=== PATIENT | female | born 1970 | race African-American/Black ===

== ENCOUNTER → 2019-10-15 14:50 | Outpatient (CLI) | payer BC, SELFPAY ==
--- NOTE | ~2019-10-15 | MM_ITS ---
EXAMINATION: MM screening contra [facility] BI w marilou HISTORY: Screening mammogram TECHNIQUE: Craniocaudal and mediolateral oblique 3-D tomosynthesis images were obtained and synthetic 2-D images were generated. CAD analysis was submitted and interpreted. COMPARISON: 08/21/2018, 09/19/2017, 09/17/2016 BREAST PARENCHYMAL COMPOSITION: The breasts are extremely dense, which lowers the sensitivity of mamm ography. FINDINGS: There is no evidence of suspicious mass, calcification, or architectural distortion to sugg est malignancy in either breast. There has been no suspicious interval change. IMPRESSION: 1. No mammographic evidence of malignancy. 2. Recommend routine screening mammography in one year. BI-RADS Category 1: Negative Reviewed, dictated and finalized at location A.
== END ==
PROVIDERS: Visit Provider Obstetrics & Gynecology
DX: Z12.31 Encounter for screening mammogram for malignant neoplasm of breast (principal)
CPT/HCPCS: 77063; 77067

== ENCOUNTER → 2020-12-22 16:07 | Outpatient (CLI) | payer BC, SELFPAY ==
--- NOTE | ~2020-12-22 | MM_ITS ---
EXAMINATION: MM screening jenny BI w marilou HISTORY: Screening TECHNIQUE: Craniocaudal and mediolateral oblique 3-D tomosynthesis images were obtained and synthetic 2-D images were generated. CAD analysis was submitted and interpreted. COMPARISON: Comparison to multiple prior studies sequentially, with oldest reviewed study dated 08/20. BREAST PARENCHYMAL COMPOSITION: The breasts are extremely dense, which lowers the sensitivity of mamm ography. FINDINGS: There is no evidence of suspicious mass, calcification, or architectural distortion to sugg est malignancy in either breast. There has been no suspicious interval change. IMPRESSION: 1. No mammographic evidence of malignancy. 2. Recommend routine screening mammography in one year. BI-RADS Category 1: Negative Reviewed, dictated and finalized at location A.
== END ==
PROVIDERS: Visit Provider Obstetrics & Gynecology
DX: Z12.31 Encounter for screening mammogram for malignant neoplasm of breast (principal)
CPT/HCPCS: 77063; 77067

== ENCOUNTER 2021-12-28 00:34 | Day surgery (SDC) | payer BC, SELFPAY ==
[2021-12-11 15:16] VITALS: BMI 27.6
[2021-12-28 09:02] VITALS: BP 120/91; PULSE 73; RESP 22; TEMP 36.3; O2SAT 100
[2021-12-28] MEDS: LACTATED RINGERS 1,000 ML 150 ML IV CONT (09:18)
--- NOTE | 2021-12-28 09:58 | P.PNAN_ITS ---
Anes - Initial Pre Proc Eval Procedure: Operation Date: 12/28/21 10:30 Proposed Procedures p Screening Colonoscopy - Franco Hadley MD Date/Time: 12/28/21 09:58 Surgeon: Franco Hadley MD Pre Op Diagnosis: neoplasm screening Patient Data Age: 51 Gender: F Height: 1.63 m Weight: 74.2 kg Last Vital Signs Temp 97.3 F L 12/28/21 09:02 Pulse 73 12/28/21 09:02 Resp 22 H 12/28/21 09:02 BP 120/91 H 12/28/21 09:02 Pulse Ox 100 12/28/21 09:02 O2 Del Method Room Air 12/28/21 09:02 Allergies Allergy/AdvReac Type Severity Reaction Status Date / Time No Known Allergies Allergy Mild Verified 12/28/21 09:00 Home Medications Medication Instructions Recorded Confirmed Type cholecalciferol (vitamin D3) 25 25 mcg PO DAILY 11/21/21 12/28/21 History mcg (1,000 unit) capsule levonorgestrel 20 mcg/24 hours (7 1 device intrauterine ONCE 11/21/21 12/28/21 History yrs) 52 mg intrauterine device (Mirena) multivitamin with minerals 1 tablet PO DAILY 11/21/21 12/28/21 History (Hair,Skin and Nails tablet) turmeric 400 mg capsule 400 mg PO DAILY 11/21/21 12/28/21 History vitamin B complex (B 1 tablet PO DAILY 11/21/21 12/28/21 History Complex-Vitamin B12 tablet) Patient hx anesthesia problems: none Family hx anesthesia problems: none Results Review: All pre-operative results and documents have been reviewed as part of the pre- operative evaluation. ON LICENSE OF [facility] Surgical History Surgical History [place] teeth removed Family History Family History Mother Diabetes mellitus Heart problem Father Heart disease Social History Social History Smoking status: Never smoker Alcohol intake: current Drinks per week: 3 Alcohol use details: some weeks 0 drinks Substance use: never Substance use type: does not use Living arrangements: with family Spiritual care concerns: No Agree to blood products: Yes Anes - Eval Final PreProcedure Day of Procedure 12/28/21 09:58 Results Review: All pre-operative results and documents have been reviewed as part of the pre- operative evaluation. Informed Consent: The patient's anesthetic plan and its attendant risks and benefits were discussed with the patient/family/POA. Questions were solicited and answers pr ovided to the satisfaction of the patient/family/POA.
--- NOTE | 2021-12-28 10:06 | PM.HPGS ---
History of Present Illness History of Present Illness Consent: Risks, benefits, and alternatives have been discussed and questions answered. Patient agrees to proceed with procedure. Chief complaint: neoplasm screening Narrative: Gifty Vance is a 51 year old female here for first screening colonoscopy Review of Systems Constitutional: Constitutional: Denies headache(s) and Denies weakness Eyes: Eyes: Denies blurry vision ENT: Reports Normal hearing present, Denies headache(s) and Denies neck pain Cardiovascular: Cardiovascular: Denies chest pain and Denies dyspnea Respiratory: Respiratory: Denies dyspnea Gastrointestinal: Gastrointestinal: Reports no additional gastrointestinal complaints Genitourinary: Genitourinary: Denies dysuria Musculoskeletal: Musculoskeletal: Denies neck pain Integumentary/Breasts: Skin/Breast: Denies dry skin Neurologic: Reports Normal hearing present, Denies headache(s) and Denies weakness Psychiatric: Psychiatric: Denies anxiety Endocrine: Endocrine: Denies change in body appearance Hematologic/Lymphatic: Hematologic/Lymphatic: Denies easy bleeding Allergic/Immunologic: Allergic/Immunologic: Denies urticaria [facility] Past Medical History Medical History (Updated 12/28/21 @ 10:06 by Franco Hadley MD) Colon cancer screening Surgical History Surgical History [place] teeth removed Family History Family History Mother Diabetes mellitus Heart problem Father Heart disease Social History Social History Smoking status: Never smoker Alcohol intake: current Drinks per week: 3 Alcohol use details: some weeks 0 drinks Substance use: never Substance use type: does not use Living arrangements: with family Spiritual care concerns: No Agree to blood products: Yes Meds Home Medications and Allergies Home Medications Medication Instructions Recorded Confirmed Type cholecalciferol (vitamin D3) 25 25 mcg PO DAILY 11/21/21 12/28/21 History mcg (1,000 unit) capsule levonorgestrel 20 mcg/24 hours (7 1 device intrauterine ONCE 11/21/21 12/28/21 History yrs) 52 mg intrauterine device (Mirena) multivitamin with minerals 1 tablet PO DAILY 11/21/21 12/28/21 History (Hair,Skin and Nails tablet) turmeric 400 mg capsule 400 mg PO DAILY 11/21/21 12/28/21 History vitamin B complex (B 1 tablet PO DAILY 11/21/21 12/28/21 History Complex-Vitamin B12 tablet) Allergies Allergy/AdvReac Type Severity Reaction Status Date / Time No Known Allergies Allergy Mild Verified 12/28/21 09:00 Vital Signs Vital Signs - 24 hr 12/28/21 09:02 Temperature 97.3 F L Pulse Rate 73 Respiratory Rate 22 H Blood Pressure 120/91 H Pulse Oximetry 100 Oxygen Delivery Room Air Exam Const: General: comfortable and no acute distress HENMT: General nose exam: Normal nares present Eyes: General: appearance normal, both eyes and all related structures Neck: Neck: no JVD Resp: Auscultation: clear to auscultation bilaterally Cardio: Rate: regular rate Rhythm: regular rhythm GI: Inspection: non-distended GI Palp: Yes Soft to palpation Skin: General skin exam: normal color Neuro: General: gait normal Speech: normal speech Extrem: General: normal to inspection Psych: Mental Status: mental status grossly normal Assessment and Plan Assessment and plan (1) Colon cancer screening: Code(s): Z12.11 - Encounter for screening for malignant neoplasm of colon Status: Acute Assessment and Plan: colonoscopy
[2021-12-28 10:31] VITALS: BP 109/53; PULSE 68; RESP 21; O2SAT 98
[2021-12-28 10:41] VITALS: BP 127/77; PULSE 65; RESP 19; O2SAT 100
[2021-12-28 10:51] VITALS: BP 121/64; PULSE 65; RESP 17; O2SAT 96
== END 2021-12-28 10:58 | disposition home or self-care (01) ==
PROVIDERS: Visit Provider Internal Medicine Gastroenterology
PROC: 0DJD8ZZ Inspection of Lower Intestinal Tract, Via Natural or Artificial Opening Endoscopic (ICD-10-PCS; CPT 45378; principal; 2021-12-28 10:30)
DX: Z12.11 Encounter for screening for malignant neoplasm of colon (principal)
CPT/HCPCS: 45378; J2704; J7120

== ENCOUNTER → 2022-02-04 14:58 | Outpatient (CLI) | payer BC, SELFPAY ==
--- NOTE | ~2022-02-04 | MM_ITS ---
EXAMINATION: MM screening jenny BI w marilou HISTORY: Screening mammogram TECHNIQUE: Craniocaudal and mediolateral oblique 3-D tomosynthesis images were obtained and synthetic 2-D images were generated. CAD analysis was submitted and interpreted. COMPARISON: 12/18/2020, 10/15/2019 bilateral screening mammogram examinations 08/17/2018 bilateral diagnostic mammography and limited left breast ultrasound BREAST PARENCHYMAL COMPOSITION: The breasts are heterogeneously dense, which may obscure small masses . FINDINGS: Stable benign circumscribed left axillary tail lymph nodes There is no evidence of suspicio us mass, calcification, or architectural distortion to suggest malignancy in either breast. There has been no suspicious interval change. IMPRESSION: 1. No mammographic evidence of malignancy. 2. Recommend routine screening mammography in one year. BI-RADS Category 2: Benign finding(s). 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
== END ==
PROVIDERS: Visit Provider Obstetrics & Gynecology
DX: Z12.31 Encounter for screening mammogram for malignant neoplasm of breast (principal)
CPT/HCPCS: 77063; 77067

== ENCOUNTER 2023-06-11 14:41 | Outpatient (CLI) | payer BC, SELFPAY ==
--- NOTE | ~2023-06-11 | MM_ITS ---
EXAMINATION: MM screening jenny BI w marilou HISTORY: Screening mammogram TECHNIQUE: Craniocaudal and mediolateral oblique 3-D tomosynthesis images were obtained and synthetic 2-D images were generated. Bilateral rotated lateral CC views. CAD analysis was submitted and interp reted. COMPARISON: 02/04/2022, 12/18/2020 bilateral screening mammogram examinations BREAST PARENCHYMAL COMPOSITION: The breasts are heterogeneously dense, which may obscure small masses . FINDINGS: There is no evidence of suspicious mass, calcification, or architectural distortion to sugg est malignancy in either breast. There has been no suspicious interval change. IMPRESSION: 1. No mammographic evidence of malignancy. 2. Recommend routine screening mammography in one year. BI-RADS Category 1: Negative Reviewed, dictated and finalized at location A.
== END 2023-06-11 14:42 ==
PROVIDERS: PCP Obstetrics & Gynecology; Visit Provider Obstetrics & Gynecology
DX: Z12.31 Encounter for screening mammogram for malignant neoplasm of breast (principal)
CPT/HCPCS: 77063; 77067

== ENCOUNTER 2024-04-30 12:51 | Outpatient (CLI) | payer BC, SELFPAY ==
--- OUTSIDE RECORDS SUMMARY | 2024-04-30 12:54 | XMS_ITS | Patient Health Summary ---
Author Organization [facility] Address [address] [place] [address] Care Team Providers Care Tire Mechanic Name Role Phone Thomas Velez MD Primary Care Provider [phone] Note from [facility],non-owned Affiliates and Associated Physician Practices is amultiple site organization consisting of ambulatory clinics and hospital sitesin [place], [place], [place] and [place]. This disclosure is being madepursuant to the Care Everywhere program and may not contain all information available regarding this patient. Last updated 17.[facility] Allergies No known active allergies Medications Be aware that medications may not be up to date on this document. Always verify current medications with the patient. No known medications Active Problems Problem Noted Date Diagnosed Date SOB (shortness of breath) 02/04/2023 Social History Tobacco Use Types Packs/Day Years Used Date Smoking Tobacco: Never Smokeless Tobacco: Never Tobacco Cessation:Counseling Given: Not Answered Sex and Gender Information Value Date Recorded Sex Assigned at Not on file Gender Identity Not on file Sexual Orientation Not on file Last Filed Vital Signs Vital Sign Reading Time Taken Comments Blood Pressure 130/84 03/05/2023 2:23 PM MANAGER DIVISION Pulse 84 02/04/2023 2:13 PM MANAGER DIVISION Temperature 36.7 ??C (98 ??F) 02/04/2023 2:13 PM MANAGER DIVISION Respiratory Rate 14 02/03/2023 8:16 AM MANAGER DIVISION Oxygen Saturation 99% 02/03/2023 8:16 AM MANAGER DIVISION Inhaled Oxygen Concentration - - Weight 79.4 kg (175 lb) 03/05/2023 2:23 PM MANAGER DIVISION Height 162.6 cm (5' 4 ) 03/05/2023 2:23 PM MANAGER DIVISION Body Mass Index 30.04 03/05/2023 2:23 PM MANAGER DIVISION Procedures * ECHO COMPLETE(Performed 03/05/2023) Performed for SOB (shortness of breath) * EKG 12-LEAD(Performed 02/04/2023) Performed for SOB (shortness of breath) * CULTURE URINE(Performed 02/03/2023) Performed for Frequency of urination * HCG URINE QUALITATIVE - POCT (IP) URGENT CARE(Performed 02/03/2023) Performed for Frequency of urination * URINALYSIS - POCT (IP) URGENT CARE(Performed 02/03/2023) Performed for Frequency of urination Results * ECHO COMPLETE (03/05/2023 2:24 PM MANAGER DIVISION) BSA 1.2143855 [id number] m2 SSM CV FUJI PACS LV biplane EF 64 54 - 74 % SSM CV FUJI PACS LV A2C EF 69 52 - 76 % SSM CV FUJ I PACS LV A4C EF 61 46 - 78 % SSM CV FUJ I PACS LV stroke vol BP 54.2 mL SSM CV FUJI PACS LV stroke vol BP index 28.2 mL/m2 SSM CV FUJI PACS LVOT stroke vol 69.95 mL SSM CV FUJI PACS LVOT stroke vol index 36.45 mL/m2 SSM CV FUJI PACS LV stroke vol 2D teich 61.025 ml SSM CV FUJI PACS LV Stroke Index 2D Teich 31.80 mL/m2 SSM CV FUJI PACS LV stroke vol index A4C MOD 47.132 ml/m2 SSM CV FUJI PACS LVIDd 4.70 3.8 - 5.2 cm SSM CV FUJI PACS LVIDs 3.22 2.2 - 3.5 cm SSM CV FUJI PACS IVSd 2D 1.002 0.6 - 0.9 cm SSM CV FUJI PACS LVPWd 1.02 0.6 - 0.9 cm SSM CV FUJI PACS Fractional Shortening 2D 32 28 - 44 % SSM CV FUJI PACS LV ESV BP 30.758 14 - 42 mL SSM CV FUJI PACS LV ESV index BP 16.0 8 - 24 mL/m2 SSM CV FUJI PACS LV ESV A2C 30.326 10 - 54 mL SSM CV FUJI PACS LV ESV index A2C 15.80 6 - 30 mL/m2 SSM CV FUJI PACS LV EDV BP 84.94 46 - 106 mL SSM CV FUJI PACS LV ESV A4C 26.468 12 - 60 mL SSM CV FUJI PACS LV ESV index A4C 13.79 7 - 35 mL/m2 SSM CV FUJI PACS LV EDV index BP 44.3 29 - 61 mL/m2 SSM CV FUJI PACS LV EDV A2C 84.75 41 - 133 mL SSM CV FUJI PACS LV EDV index A2C 44.16 26 - 74 mL/m2 SSM CV FUJI PACS LV EDV A4C 77.458 mL SSM CV FU JI PACS LV ESV 2D 41.424 14 - 42 mL SSM CV FUJI PACS LV EDV index A4C 40.36 30 - 82 mL/m2 SSM CV FUJI PACS LV ESV index 2D 21.59 8 - 24 mL/m2 SSM CV FUJI PACS LV EDV 2D 102.449 46 - 106 mL SSM CV FUJI PACS LV EDV index 2D 53.39 29 - 61 mL/m2 SSM CV FUJI PACS LVOT diam 2.0 cm SSM CV FUJ I PACS LVOT area 3.04 cm2 SSM CV FUJ I PACS LV RWT 0.433 SSM CV FUJ I PACS LV Clarke A2C 8.438 cm SSM CV F UJI PACS LV Clarke A4C 7.557 cm SSM CV F UJI PACS IVS/LVPW 0.984 SSM CV FUJ I PACS LV mass 2D 166.799 66 - 150 g SSM CV FUJI PACS LV mass index 2D 86.92 44 - 88 g/m2 SSM CV FUJI PACS MV E pk ruben 109.702 cm/s SSM CV F UJI PACS MV avg E/e' ratio 12.58 SS M CV FUJI PACS MV A pk ruben 90.583 cm/s SSM CV F UJI PACS MV E A ratio 1.21 SSM CV FUJI PACS MV E' lateral ruben 12.074 cm/s SS M CV FUJI PACS MV DT 226 ms SSM CV FUJ I PACS MV E' septal ruben 6.823 cm/s SSM CV FUJI PACS MV E/e' septal 16.079 SSM C V FUJI PACS MV E/e' lateral 9.086 SSM CV FUJI PACS LA vol BP 73.717 mL SSM CV FUJ I PACS TR pk ruben 237.6 cm/s SSM CV FUJ I PACS LVOT pk ruben 1.07 m/s SSM CV F UJI PACS LVOT mn ruben 0.69 m/s SSM CV F UJI PACS LVOT mn grad 2.2 mmHg SSM CV FUJI PACS LVOT Cardiac Output 4.376 l/min SSM CV FUJI PACS LVOT Cardiac Index 2.28 l/min/m2 SSM CV FUJI PACS LA vol index 38.4 16 - 34 mL/m2 SSM CV FUJI PACS LA size 4.233 2.7 - 3.8 cm SSM CV FUJI PACS LA vol BP A-L 78.012 mL SSM CV FUJI PACS RV-clarke basal diam 2.2 2.5 - 4.1 cm SSM CV FUJI PACS RV-clarke longitudinal diam 6.8 5.9 - 8.3 cm SSM CV FUJI PACS TV S' ruben 12.941 cm/s SSM CV FUJ I PACS TAPSE 2.486 1.7 cm SSM CV FUJ I PACS RA area 16.691 cm2 SSM CV FUJ I PACS AORTIC VALVE CUSP SEPARATION 2.06 cm SSM CV FUJI PACS AV mn grad 4 mmHg SSM CV FU JI PACS AV pk grad 8 mmHg SSM CV FU JI PACS AV mn ruben 0.90 m/s SSM CV FUJ I PACS AV pk ruben 1.42 m/s SSM CV FUJ I PACS AV VTI 30.747 cm SSM CV FUJ I PACS LVOT pk grad 4.579 mmHg SSM CV FUJI PACS LVOT VTI 22.989 cm SSM CV FUJ I PACS AV area cont VTI 2.3 cm2 SSM CV FUJI PACS AV area pk ruben 2.3 cm2 SSM C V FUJI PACS AV Doppler ruben index pk ruben 0.752 SSM CV FUJI PACS Dimensionless Index 0.748 SSM CV FUJI PACS MV PHT 65 ms SSM CV FUJ I PACS MV area PHT 3.36 cm2 SSM CV F UJI PACS MV decel slope 485.727 cm/s2 SSM C V FUJI PACS TR pk grad 23 mmHg SSM CV FU JI PACS Sinus of Valsalva 3.44 cm SS M CV FUJI PACS Ascending aorta 3.02 cm SSM CV FUJI PACS Sinus of valsalva index 1.79 cm/m2 SSM CV FUJI PACS IVC size 2.9 cm SSM CV FUJ I PACS LA ESV A4C MOD Index 37 ml/m2 SSM CV FUJI PACS LA ESV A2C MOD Index 34 ml/m2 SSM CV FUJI PACS [id number] 6.027 cm SSM CV FUJ I PACS [id number] 7.331 cm SSM CV FUJ I PACS Prox Asc Ao Diameter Index 1.574 cm SSM CV FUJI PACS Ao Root Diam Index (2D) 1.792 cm SSM CV FUJI PACS LVIDs index 1.68 1.3 - 2.1 cm/m2 SSM CV FUJI PACS LV LVIDd index 2.45 2.3 - 3.1 cm/m2 SSM CV FUJI PACS RVSP 38.0 mmHg SSM CV FUJ I PACS RAP 15.0 mmHg SSM CV FUJ I PACS Anatomical Region Laterality Modality Ultrasound Narrative 03/05/2023 6:21 PM MANAGER DIVISION ?Normal left ventricular systolic function. EF by 2D Arellano biplane is 64%. Diastolic function is indeterminate. ?Right ventricle size is normal. Normal systolic function. ?The pulmonary artery systolic pressure is normal. ?Mild mitral regurgitation. Left Ventricle Left ventricle size is normal. Normal wall thickness. Findings consistent with concentric remodeling. Normal systolic function. EF by 2D Arellano biplane is 64%. Normal wall motion. Diastolic function is indeterminate. Right Ventricle Right ventricle size is normal. Normal systolic function. Left Atrium Left atrium size is normal. Left atrium volume index is 38.4 mL/m2. Right Atrium Right atrium size is normal. IVC/SVC IVC diameter is greater than 21 mm and decreases less than 50% during inspiration; therefore the estimated right atrial pressure is elevated (~15 mmHg). Mitral Valve Valve structure is normal. No restricted motion. Mild regurgitation. No stenosis. Tricuspid Valve Valve structure is normal. No restricted motion. Mild regurgitation. The pulmonary artery systolic pressure is normal (under 35 mmHg). No stenosis. Aortic Valve Valve structure is trileaflet. No restricted motion. No regurgitation. No stenosis. Pulmonic Valve Valve structure is normal. No restricted motion. Mild regurgitation. No stenosis. Ascending Aorta Normal sized sinus of Valsalva (aortic root) and ascending aorta. Pericardium No pericardial effusion. Study Details Study quality was good. A complete 2D, color Doppler, spectral Doppler and M- mode echocardiogram was performed. The apical, parasternal, subcostal and suprasternal views were obtained. Procedure Note Geronimo Gardner MD - 03/05/2023 ? ? Normal left ventricular systolic function. EF by 2D Arellano biplane is64%. Diastolic function is indeterminate. ? ? Right ventricle size is normal. Normal systolic function. ? ? The pulmonary artery systolic pressure is normal. ? ? Mild mitral regurgitation. Geronimo Campo MD ECHO CUP ID * EKG 12-LEAD (02/04/2023 2:16 PM MANAGER DIVISION) Ventricular Rate 78 BPM [facility] Atrial Rate 78 BPM [facility] P-R Interval 144 ms [facility] QRS Duration ms 78 ms [facility] Q-T Interval ms 400 ms [facility] QTC Calculation (Bezet) 456 ms [facility] Calculated P [place] 51 degrees [facility] Calculated R [place] 25 degrees [facility] Calculated T [place] 30 degrees [facility] Interpretation EKG NORMAL SINUS RHYTHM NORMAL ECG Confirmed by MD Bharti, Remigio ([id number]) on 02/05/2023 7:37:32 AM [facility] MUSE 02/04/2023 2:16 PM MANAGER DIVISION 02/05/2023 7:37 AM MANAGER DIVISION Geronimo Campo MD ECG [facility] MUSE * (ABNORMAL) CULTURE URINE (02/03/2023 10:42 AM MANAGER DIVISION) Culture Urine >100,000 CFU/mL Escherichia coli(A) SERGIO 02/05/2023 5:42 AM MANAGER DIVISION [facility]CRO[facility]OLOG[facility] Urine URINE SPECIMEN OBTAINED BY CLEAN CATCH PROCEDURE / Unknown Collection / Unknown 02/03/2023 10:42 AM MANAGER DIVISION 02/03/2023 10:42 AM MANAGER DIVISION Narrative Organism Antibiotic Method Susceptibility Escherichia coli Amikacin SERGIO <=2 ug/mL: Susceptible Escherichia coli Ampicillin SERGIO <=2 ug/mL: Susceptible Escherichia coli Ampicillin-sulbactam SERGIO <=2 ug/mL: Susceptible Escherichia coli Cefazolin SERGIO <=4 ug/mL: See Comment* Escherichia coli Cefazolin-Urine (uncomplicated infections ONLY) SERGIO <=4 ug/mL: Susceptible Escherichia coli Cefepime SERGIO <=1 ug/mL: Susceptible Escherichia coli Ceftriaxone SERGIO <=1 ug/mL: Susceptible Escherichia coli Ciprofloxacin SERGIO <=0.25 ug/mL: Susceptible Escherichia coli Extended-Spectrum Beta-Lactamase SERGIO NEG ug/mL: Neg Escherichia coli Gentamicin SERGIO <=1 ug/mL: Susceptible Escherichia coli Meropenem SERGIO <=0.25 ug/mL: Susceptible Escherichia coli Nitrofurantoin SERGIO <=16 ug/mL: Susceptible Escherichia coli Piperacillin-tazobactam SERGIO <=4 ug/mL: Susceptible Escherichia coli Tobramycin SERGIO <=1 ug/mL: Susceptible Escherichia coli Trimethoprim-sulfame thoxaz ole SERGIO <=20 ug/mL: Susceptible Comment: *Cefazolin SERGIO of </=4 cannot distinguish between susceptible or intermediate for systemic breakpoints. If further defined interpretation is needed, call Microbiology and a disk diffusion test will be performed. Urine breakpoints for cefazolin should only be used when treating uncomplicated UTIs including men and women without urologic abnormality, kidney stones, stents, nephrostomy tubes, signs/symptoms of systemic illness, or pelvic/perineal pain in men. Cefazolin results can be used to predict susceptibility to oral cephalosporins - cephalexin, cefprozil, cefaclor, cefuroxime, cefdinir, and cefpodoxime. For complicated UTIs, use alternative cefazolin susceptibility result above. Aisha Gomez HAT CLEANER-AIRCRA[employer] SHIPPING CHECKER LAB - MICROBIOLO GY ORDERABLES Performing Organization Address City/[facility]/ZIP Co de Phone Number [facility] [address] [place] [address], [facility] [phone] * HCG URINE QUALITATIVE - POCT (IP) URGENT CARE (02/03/2023 8:22 AM MANAGER DIVISION) HCG Qual Urine Negative Negative [facility] QC Verified Yes Yes [facility] Urine URINE / Unknown 02/03/2023 8 :22 AM MANAGER DIVISION Aisha Gomez HAT CLEANER[employer] SHIPPING CHECKER LAB - POINT OF C ARE ORDERABLES Performing Organization Address [facility] Co de Phone Number [facility] [address] [place] [address] * (ABNORMAL) URINALYSIS - POCT (IP) URGENT CARE (02/03/2023 8:22 AM MANAGER DIVISION) Glucose UA neg Negative [facility] Bilirubin UA neg Negative [facility] Ketone UA neg Negative [facility] Specific [place] UA POCT 1.005 1.000 - 1.030 [facility] Blood UA 2 Negative [facility] pH UA 7.0 5.0 - 8.0 pH units [facility] Protein UA 1+ Negative [facility] Urobilinogen UA 0.2 0.2 - 1.0 EU/dL [facility] Nitrite UA neg Negative [facility] Leukocyte UA 2+ Negative [facility] QC Verified Yes Yes [facility] Urine URINE / Unknown 02/03/2023 8 :22 AM MANAGER DIVISION Aisah Gomez HAT CLE[employer]ER[employer] SHIPPING CHECKER LAB - POINT OF C ARE ORDERABLES Performing Organization Address [facility] Co de Phone Number [facility] [address] [place] [address] Care Teams Tire Mechanic Relationship Specialty Start Date End Date Thomas Velez MD [address] [id number] PCP - General Internal Medicine 01/24/23
--- OUTSIDE RECORDS SUMMARY | 2024-04-30 12:54 | XMS_ITS | Clinical Summary ---
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 Gender Identity Not on file Sexual Orientation Not on file Plan of Treatment Health Maintenance Due Date Last Done Comments Hepatitis C Virus (HCV) Screening 1972 TdaP Immunization 1972 Pap Smear 1993 Cervical Cancer Screening (CCS) 2002 HPV/Cotest 2002 Colonoscopy 2017 Colorectal Cancer Screening 2017 Cologuard 2022 Immunochemical Fecal Occult Blood 2022 Mammogram 2022 Pneumococcal Immunization (5 0+ years) (1 of 1 - PCV) 2022 Zoster Immunization (1 of 2) 2022 Influenza Immunization (#1) 2023 SARS-COV-2 Immunization ( - 2023-25 season) 2023 Respiratory Syncytial Virus (RSV) Immunization (Adult) (1 - 1-dose 75+ series) 2047 Hepatitis B Immunization Completed 019, 09/27/2018, 08/27/2018 Meningococcal Immunization (ACWY) Aged Out No longer eligible b ased on patient's age to complete this topic Pneumococcal Immunization Combined Aged Out No longer eligible b ased on patient's age to complete this topic Rotavirus Immunization Aged Out No lo nger eligible based on patient's age to complete this topic Insurance [employer] on file
--- OUTSIDE RECORDS SUMMARY | 2024-04-30 12:56 | XMS_ITS | Continuity of Care Document ---
Author Organization [facility] Address [address] [place] [address] Phone Care Team Providers Care Ring Conductor Name Role Phone House Ingris BRITTON Unavailable Unavailable Allergies, Adverse Reactions, Alerts Substance Reaction Status Criticality No Known Allergies Active No Inform ation Medications Medication Instructions Dosage Effective Dates (start - stop) Status Comments Vitamin D2 1,250 mcg (50,000 unit) capsule - Active vitamin B complex tablet - Active meloxicam 15 mg tablet take 1 tablet by oral route every day 15 MG - No Longer Active Procedures Procedure Date X-ray Exam Hip Unilat With Pelvis When P erformed Min 4 Views Office/outpatient visit,[facility] 2023 Advance Directives Directive Yes / No Effective Date File Name No Information Encounters Encounter Description Practice Location Reason(s) For Visit Diagnoses Date Provider Providers Copied on Encounter Office/outpat ient visit,[facility], [facility], [address], [place], [place], [id number], [place] tel:[phone] [facility] right hip pain (chief complaint) Pain in right hipTrochanteric bursitis, right hip 4 [place] [facility] . [address], [address], [place], [place], [id number] , [place]. tel: [phone] Family History Family Member Type Diagnosis Age At Onset Mother Problem (finding) Heart Disease Mother Problem (finding) Diabetes Father Problem (finding) Heart Disease Immunizations Vaccine Date Status Comments influenza, injectable, quadrivalent, (3 years or older) administered Source: Source Unspecified Payers Payer name Insurance type Covered green party ID Daphney philippe[facility] [id number] 99 Social History Type Description Quantity Date Captured Comments Alcohol Use Details Unknown Caffeine Use Details Unknown Tobacco Use Status Current non-smoker Smoking Status Never smoker Non-Smoking Tobacco Use Details : No Details Available : No Details Available Sex Female Vital Signs Date / Time: Height Weight BMI Pulse Rate Blood Pressure Temperature Respiratory Rate Body Surface Area Head Circumference Head Circ. Percentile Wt./Russell. Percentile BMI percentile Pulse Ox Inhaled Ox 9:26 AM 64.00 in 77.111 kg (170.00 lbs) 29.1 8 kg/m eter (2) 1.87 meter(2) Chief Complaint And Reason For Visit From encounter dated '09/19/2023 09:30'. right hip pain (chief complaint). Description: Gifty Vance is a 53 year old female. She presents with pain on the right side. She states that the symptoms have been acute non-traumatic and began 3 months ago. The symptoms occur constantly. The problem is unchanged. Currently the patient states that the symptoms are moderate-severe. The patient is experiencing pain in the following location: lateral region on the right side. She rates her current pain as 7/10. The pain does not radiate. The symptoms are aggravated by sitting and sleeping on the affected side. Gifty states that the symptoms are relieved by no specific activity. She denies having any associated symptoms. Pertinent negatives include fever, tingling in the arms and weight loss. She has had no previous treatment. Patient has not had any pertinent therapy for this condition. Patient has had no prior surgeries. There were no previous episodes. She experienced no previous injury. Reason For Referral Reason For Referral No Information Plan Of Treatment Date Type Action Status Referral Ordered: X-ray Exam Hip Unilat With Pelvis When Performed Min 4 Views RT hip ordered History Of Present Illness Encounter Date Complaint History Of Prese nt Illness right hip pain Gifty Vance is a 53 year old female. She presents with pain on the right side. She states that the symptoms have been acute non-traumatic and began 3 months ago. The symptoms occur constantly. The problem is unchanged. Currently the patient states that the symptoms are moderate-severe. The patient is experiencing pain in the following location: lateral region on the right side. She rates her current pain as 7/10. The pain does not radiate. The symptoms are aggravated by sitting and sleeping on the affected side. Gifty states that the symptoms are relieved by no specific activity. She denies having any associated symptoms. Pertinent negatives include fever, tingling in the arms and weight loss. She has had no previous treatment. Patient has not had any pertinent therapy for this condition. Patient has had no prior surgeries. There were no previous episodes. She experienced no previous injury. Functional Status Date Functional Assessmen t No Information Instructions Date Instruction Additional Infor mation The patient would li ke to proceed with conservative care and continue icing, NSAIDs/Tylenol, activity modifications, and physical therapy guided rehab and/or home strengthening exercises as appropriate. We discussed we could proceed with an injection or more vs. more likely obtaining an MRI if not improved to rule out an Abductor tear if indicated. The patient will follow up on an as needed basis and was instructed to call with any issues or concerns. Questions answered, verbalized understanding. Related to Trochanteric bursitis, right hip Assessments Type Assessment Date assessment Pain in right hip assessment Trochanteric bursitis, right hip impression We discussed in bee pretty the symptoms, causes, treatment options, and expected outcomes of the patient's trochanteric bursitis. We discussed the role of initial non-operative management strategies, including icing, the judicious use of anti-inflammatory medications with the approval of the patient's primary care physician, activity modifications, and physical therapy/home exercises. We discussed the role of cortisone injections as well as biologic injections such as PRP, and the possible need for surgical intervention should non-surgical treatments fail. After a detailed discussion the patient and I have elected to proceed with the following plan: Patient Care Teams Name Effective Dates (start - stop) Status Members No Information
--- OUTSIDE RECORDS SUMMARY | 2024-04-30 12:56 | XMS_ITS | Clinical Summary ---
Author Organization [email or web address] Address [address] [place] [address] Care Team Providers Care Post Production Assistant Name Role Phone Thomas Velez MD Primary Care Provider [phone] Source Comments [email or web address],non-owned Affiliates and Associated Physician Practices is amultiple site organization consisting of ambulatory clinics and hospital sitesin [place], [place], [place] and [place]. This disclosure is being madepursuant to the Care Everywhere program and may not contain all information available regarding this patient. Last updated 12/19/17.[email or web address] Allergies No known active allergies Medications Be [...] Comments Blood Pressure 130/84 03/05/2023 2:23 PM ART OBJECTS REPAIRER Pulse 84 02/04/2023 2:13 PM ART OBJECTS REPAIRER Temperature 36.7 ??C (98 ??F) 02/04/2023 2:13 PM ART OBJECTS REPAIRER Respiratory Rate 14 02/03/2023 8:16 AM ART OBJECTS REPAIRER Oxygen Saturation 99% 02/03/2023 8:16 AM ART OBJECTS REPAIRER Inhaled Oxygen Concentration - - Weight 79.4 kg (175 lb) 03/05/2023 2:23 PM ART OBJECTS REPAIRER Height 162.6 cm (5' 4 ) 03/05/2023 2:23 PM ART OBJECTS REPAIRER Body Mass Index 30.04 03/05/2023 2:23 PM ART OBJECTS REPAIRER Plan of Treatment Health Maintenance Due Date Last Done Comments COLOGUARD (AGES 45-75) - COLON CA SCREENING 1972 COLON MONITORING 1972 COLONOSCOPY - COLON CA SCREENING 1972 CT COLONOGRAPHY - COLON CA SCREENING 1972 Colorectal Cancer Screening 1972 FIT - COLON CA SCREENING 1972 FLEX SIG - COLON CA SCREENING 1972 LIPID TESTING 1972 MAMMOGRAM 1972 PAP SMEAR 1972 HIV SCREENING 1987 HEPATITIS C SCREENING 03/25/1990 DTAP/TDAP/TD VACCINES (1 - Tdap) 1991 HEPATITIS B VACCINE (1 of 3 - 19+ 3-dose series) 1991 PNEUMOCOCCAL VACCINE 50+ (1 of 1 - PCV) 2022 ZOSTER VACCINE (1 of 2) 2022 COVID-19 VACCINE (5 - season) 2023 01/28/2021, 07/15/2020, 06/24/2020, Additional history exists INFLUENZA VACCINE (#1) 2023 DEPRESSION SCREENING 03/31/2024 HIB VACCINE Aged Out No longer eligi ble based on patient's age to complete this topic HPV VACCINE Aged Out No longer eligi ble based on patient's age to complete this topic MENINGOCOCCAL (Group B) VACCINE Aged Out No longer eligible based on patient's age to complete this topic MENINGOCOCCAL VACCINE Aged Out No roberto rocael eligible based on patient's age to complete this topic PNEUMOCOCCAL VACCINE Aged Out No long er eligible based on patient's age to complete this topic Care Teams Post Production Assistant Relationship Specialty Start Date End Date Thomas Velez MD [address] [place] [id number] PCP - General Internal Medicine 01/24/23
--- OUTSIDE RECORDS SUMMARY | 2024-04-30 12:56 | XMS_ITS | Referral Summary ---
Author Organization [facility] Address [address] [place] [address] Care Team Providers Care Career Placement Services Counselor Name Role Phone Thomas Velez MD Primary Care Provider [phone] Source Comments [facility],non-owned Affiliates and Associated Physician Practices is amultiple site organization consisting of ambulatory clinics and hospital sitesin [place], [place], [place] and [place]. This disclosure is being madepursuant to the Care Everywhere program and may not contain all information available regarding this patient. Last updated 17.[facility] Allergies No known active allergies Medications Be [...] Comments Blood Pressure 130/84 03/05/2023 2:23 PM PIANO ASSEMBLER Pulse 84 02/04/2023 2:13 PM PIANO ASSEMBLER Temperature 36.7 ??C (98 ??F) 02/04/2023 2:13 PM PIANO ASSEMBLER Respiratory Rate 14 02/03/2023 8:16 AM PIANO ASSEMBLER Oxygen Saturation 99% 02/03/2023 8:16 AM PIANO ASSEMBLER Inhaled Oxygen Concentration - - Weight 79.4 kg (175 lb) 03/05/2023 2:23 PM PIANO ASSEMBLER Height 162.6 cm (5' 4 ) 03/05/2023 2:23 PM PIANO ASSEMBLER Body Mass Index 30.04 03/05/2023 2:23 PM PIANO ASSEMBLER Plan of Treatment Not on file Care Teams Career Placement Services Counselor Relationship Specialty Start Date End Date Thomas Velez MD [address] [address] PCP - General Internal Medicine 01/24/23
--- OUTSIDE RECORDS SUMMARY | 2024-04-30 12:56 | XMS_ITS | Clinical Summary ---
Author Organization [facility] [address] [facility] Address [address] [place] [address] Care Team Providers Care Coppersmith Helper Name Role Phone Christiana Tovar MD Primary Care Provider [phone] Medications azelastine (ASTELIN) 137 mcg/actuation nasal spray Administer 2 Sprays in each nostril 2 times daily. 30 mL Active Active Problems No known active problems Encounters Date Type Department Care Team Description 04/22/2024 External Device Data ST[facility] ABSTRACTION Provider, Abstract 04/21/2024 External Device Data STL ABSTRACTION Provider, Abstract 04/20/2024 External Device Data ST[facility] ABSTRACTION Provider, Abstract 04/13/2024 External Device Data STL ABSTRACTION Provider, Abstract 04/13/2024 External Device Data ST[facility] ABSTRACTION Provider, Abstract 04/07/2024 12:05 PM RAILROAD INSPECTOR Office Visit [facility] [address] [phone] Lawanda Howe MD Head congestion (Primary Dx); Sore throat from Last 3 Months Family History Medical History Relation Name Comments Heart Failure Father Heart Surgery Mother Relation Name Status Comments Father (Age 73) Mother Alive Social History Tobacco Use Types Packs/Day Years Used Date Smoking Tobacco: Never Smokeless Tobacco: Never Alcohol Use Standard Drinks/Week Comments Yes 0 (1 standard drink = 0.6 oz pur e alcohol) Comments Unknown Sex and Gender Information Value Date Recorded Sex Assigned at Not on file Legal Sex Female 3:51 PM CDT Gender Identity Not on file Sexual Orientation Not on file Last Filed Vital Signs Vital Sign Reading Time Taken Comments Blood Pressure 132/88 04/07/2024 12:18 PM RAILROAD INSPECTOR Pulse 74 04/07/2024 12:18 PM RAILROAD INSPECTOR Temperature 36.7 ??C (98.1 ??F) 04/07/2024 12:[address] Respiratory Rate 16 04/07/2024 12:18 PM RAILROAD INSPECTOR Oxygen Saturation 98% 04/07/2024 12:18 PM RAILROAD INSPECTOR Inhaled Oxygen Concentration - - Weight 81.2 kg (179 lb) 04/07/2024 12:18 PM RAILROAD INSPECTOR Height 162.6 cm (5' 4 ) 04/07/2024 12:18 PM RAILROAD INSPECTOR Body Mass Index 30.73 04/07/2024 12:18 PM RAILROAD INSPECTOR Plan of Treatment Health Maintenance Due Date Last Done Comments Pre-Diabetes and Diabetes Screening 1972 DTAP/TDAP/TD VACCINES (1 - Tdap) 1991 HEPATITIS B VACCINES (1 of 3 - 19+ 3-dose series) 1991 CERVICAL CANCER SCREENING 2002 BREAST CANCER SCREENING 2012 COLORECTAL SCREENING 2017 Colorectal Cancer Screening 2017 FIT-DNA Q 3 years 2017 FIT/FOBT Q 1 year 2017 Flex Sig/CT Colonography Q 5 years 2017 ZOSTER VACCINE (1 of 2) 2022 INFLUENZA VACCINE (#1) 2023 09/19/2023 PNEUMOCOCCAL VACCINE 0-64 YEARS Aged Out No longer eligible based on patient's age to complete this topic Procedures Procedure Name Priority Date/Time Associated Diagnosis Comments POC RAPID STREP A ANTIGEN Routine 04/07/2024 12:34 PM RAILROAD INSPECTOR Sore throat POC COVID-19 ANTIGEN Routine 04/07/2024 12:33 PM RAILROAD INSPECTOR Head congestion from Last 3 Months Results * POC RAPID STREP A ANTIGEN (04/07/2024 12:34 PM RAILROAD INSPECTOR) RAPID STREP POC Negative Negative, Indeterminate [facility] INTERNAL KIT QC POC Pass Pass [facility] KIT LOT NUMBER [id number] [facility] KIT EXP DATE POC 03/22/25 [facility] READ METHOD POC Visual [facility] Upper Respiratory SPECIMEN FROM THROAT / Unknown 04/07/2024 12:34 PM RAILROAD INSPECTOR Lawanda Howe MD POINT OF CARE TESTING Final R esult [facility] CLIA# [id number] [place] [address] * POC COVID-19 ANTIGEN (04/07/2024 12:33 PM RAILROAD INSPECTOR) COVID-19 ANTIGEN POC Presumptively Negative Presumptively Negative [facility] INTERNAL KIT QC POC Pass Pass [facility] KIT LOT NUMBER POC [id number] [facility] KIT EXP DATE POC 05/02/24 [facility] READ METHOD POC Visual [facility] Upper Respiratory 04/07/2024 12:33 PM RAILROAD INSPECTOR Lawanda Howe MD POINT OF CARE TESTING Final [facility]ult [facility] CLIA# [id number] [place] [address] from Last 3 Months Insurance BLUE ACCESS CHOICE [facility] BLUE ACCESS CHOICE Care Teams Coppersmith Helper Relationship Specialty Start Date End Date Christiana Tovar MD PCP - General Internal Medicine 11/16/19
[2024-05-02 03:23] LABS: FSH 63.4 mIU/mL
== END 2024-04-30 12:52 | disposition home or self-care (01) ==
LOC: ANHLAB 12:52
PROVIDERS: PCP Nurse Practitioner Obstetrics & Gynecology; Visit Provider Nurse Practitioner Obstetrics & Gynecology
DX: N95.1 Menopausal and female climacteric states (principal)
CPT/HCPCS: 36415; 82670; 83001

== ENCOUNTER 2024-06-25 12:52 | Outpatient (CLI) | payer BC, SELFPAY ==
--- OUTSIDE RECORDS SUMMARY | 2024-06-25 13:01 | XMS_ITS | Continuity of Care Document ---
Author Organization [facility] Address [address] [place] [address] Phone Care Team Providers Care Notcher Name Role Phone Thomas Velez MD Unavailable Unavailable Allergies, Adverse Reactions, Alerts Substance Reaction Status Criticality No Known Allergies Active No Inform ation Medications Medication Instructions Dosage Effective Dates (start - stop) Status Comments Vitamin D3 25 mcg (1,000 unit) tablet take 1 Tablet by Oral route once 1 Tablet - Active biotin 5,000 mcg disintegrating tablet - Active Zyrtec 10 mg tablet take 1 tablet by oral route every day 10 MG - Active vitamin B12 1,000 mcg-folic acid 400 mcg sublingual lozenge - Active Procedures Procedure Date IMMUN ADMIN (INC PERCUTANEOUS) SINGLE, F IRST INJ Zoster Vaccine (HZV) (SHINGRIX), Intramu scular BASIC METABOLIC PANEL(BMP) ROUTINE VENIPUNCTURE Pt inelig neg scrn depres PREVENTATIVE-EST: 40-64 BODY MASS INDEX DOCD SYST BP LT 130 MM HG DIAST BP 80-89 MM HG IMMUN ADMIN (INC PERCUTANEOUS) SINGLE, F IRST INJ Zoster Vaccine (HZV) (SHINGRIX), Intramu scular BASIC METABOLIC PANEL(BMP) LIPID PANEL ROUTINE VENIPUNCTURE PREVENTATIVE-NEW: 40-64 BODY MASS INDEX DOCD SYST BP LT 130 MM HG DIAST BP 80-89 MM HG BASIC METABOLIC PANEL(BMP) LIPID PANEL ROUTINE VENIPUNCTURE Advance Directives Directive Yes / No Effective Date File Name No Information Encounters Encounter Description Practice Location Reason(s) For Visit Diagnoses Date Provider Providers Copied on Encounter [facility], [address], [place], [place], [address] , tel:[phone] [facility] No Information 4 Agustin Guzman. [address] [place] [address], [place] [address], [place], [place], [address], [place]. tel:[phone] [facility], [address], [place], [place], [address] , tel:[phone] [facility] Mixed hyperlipidemia 3 Agustin Guzman. [address] [place] [address], [place] [address], [place], [place], [address], [place]. tel:[phone] Referring Provider: Thomas Velez, [address] [place] [address], [place], [address] . tel:[phone] PREVENTATIVE -EST: 40-64 [facility], [address], [place], [place], [address] , tel:[phone] [facility] preventive exam (chief complaint)C hronic Conditions (chief complaint)a cute problem (chief complaint)c hronic conditions (chief complaint) Mixed hyperlipidemiaRight leg painBody mass index [BMI] 30.0-30.9, [facility] 3 Agustin Guzman. [address] [place] [address], [place] [address], [place], [place], [address], [place]. tel:[phone] Referring Provider: Thomas Velez, [address] [place] [address], [place], [address] . tel:[phone] PREVENTATIVE -NEW: 40-64 [facility], [address], [place], [place], [address] , [place] tel: [phone] [facility] preventive exam (chief complaint) Encounter for general adult medical examination without abnormal findingsBody mass index [BMI] 29.0-29.9, adult 2 Agustin Guzman. [address] [place] [address], [address], [place], [place], [address], . tel:[phone] Referring Provider: Thomas Velez, [address] [place] [address] [address], [place], [address] . tel:[phone] Family History Family Member Type Diagnosis Age At Onset Father Problem Cardiovascular disease Mother Problem Alzheimer's disease Cousin Problem Cancer, breast (Cause Of Rita th) Mother Problem Cardiovascular disease Mother Problem Diabetes mellitus Immunizations Vaccine Date Status Comments SHINGRIX (Zoster vaccine recombinant, adjuvanted) administered Source: New Imm unization Record SHINGRIX (Zoster vaccine recombinant, adjuvanted) administered Source: New Imm unization Record Pfizer (Diluent Reconstitute d) COVID19 Vaccine, 0.3mL per dose, 2 doses, administered 21 days apart administered Source: Source Unspe cified Pfizer (Diluent Reconstitute d) COVID19 Vaccine, 0.3mL per dose, 2 doses, administered 21 days apart administered Source: Source Unspe cified Pfizer (Diluent Reconstitute d) COVID19 Vaccine, 0.3mL per dose, 2 doses, administered 21 days apart administered Source: Source Unspe cified Payers Payer name Insurance type Covered green party ID Authoriza tion(s) BCBS ACCESS CHOICE BL [id number] BCBS ACCESS CHOICE BL [id number] BCBS ACCESS CHOICE BL [id number] Social History Type Description Quantity Date Captured Comments Alcohol Use Details Unknown Caffeine Use Details Unknown Tobacco Use Status No Information Smoking Status No Information Sex Female Sexual Orientation Straight or heterosexual Gender Identity Female Chief Complaint And Reason For Visit No Information Reason For Referral Reason For Referral No Information Plan Of Treatment Date Type Action Status Goal Dietary management education , guidance, and counseling completed Goal Dietary management education , guidance, and counseling completed History Of Present Illness Encounter Date Complaint History Of Prese nt Illness preventive exam The patient stat es she uses IUD, Mirena for control. Negative for dysmenorrhea. Negative for: breast discharge and breast lump(s). Menopausal symptoms negative for: hot flashes, insomnia and night sweats. Pertinent negatives include anxiety, depression, dyspareunia, urinary incontinence and vaginal discharge.The patient states her exercise level is vigorous and frequency is 3-4 times/week. The patient does not use tobacco. She does drink alcohol. Chronic Conditions *See Chronic Conditions HPI acute problem Right leg pain: patient reports several months of gradual onset now intermittent achy posterior right thigh pain. She believes she has a pulled hamstring. She continues to exercise daily at [employer]. chronic conditions *See Chronic Conditions HPI preventive exam The patient stat es she uses IUD, Mirena for control. Negative for dysmenorrhea. Negative for: breast discharge and breast lump(s). Menopausal symptoms negative for: hot flashes, insomnia and night sweats. Pertinent negatives include anxiety, depression, dyspareunia, urinary incontinence and vaginal discharge.The patient states her exercise level is vigorous and frequency is 3-4 times/week. The patient does not use tobacco. She does drink alcohol. Functional Status Date Functional Assessmen t No Information Instructions Date Instruction Additional Infor vicenta You had your colonos copy earlier that she appeared you are up-to-date with your mammogram and Pap smear through your GEOPHYSICAL OPERATOR.You received your first shingles vaccine in the office today. Please come back to the office in two months for your second vaccine.Please call the office in one year for your yearly physical. Related to Preventative health care Your leg pain could certainly be due to a pulled hamstring. I would recommend running less and crosstraining more was something like a stationary bike. You might ultimately need physical therapy to help re-strengthen that right hamstring. Related to Right leg pain We will recheck your cholesterol levels today. Related to Mixed hyperlipidemia Dietary management e ducation, guidance, and counseling Related to Body mass index (BMI) 30.0-30.9, adult As we discussed, whe n you turn 52 you will be due for a colonoscopy. Your up-to-date on your mammogram and Pap smear which you receive at your GEOPHYSICAL OPERATOR office. Your up-to-date on all of your Covid vaccinations.Please call the office in one year to set up your yearly physical Related to Encounter for general adult medical examination without abnormal findings Dietary management e ducation, guidance, and counseling Related to Body mass index (BMI) 29.0-29.9, adult Assessments Type Assessment Date No Information Patient Care Teams Name Effective Dates (start - stop) Status Members No Information
--- OUTSIDE RECORDS SUMMARY | 2024-06-25 13:01 | XMS_ITS | Clinical Summary ---
Author Organization [facility] [employer] Address [address] [place] [address] Care Team Providers Care Tank Worker Name Role Phone Thomas Velez MD Primary Care Provider [phone] Source Comments [facility] [employer],non-owned Affiliates and Associated Physician Practices is amultiple site organization consisting of ambulatory clinics and hospital sitesin [place], [place], [place] and [place]. This disclosure is being madepursuant to the Care Everywhere program and may not contain all information available regarding this patient. Last updated 17.Ku Allergies No known active allergies Medications Be [...] Comments Blood Pressure 130/84 03/05/2023 2:23 PM IRRIGATION WORKER Pulse 84 02/04/2023 2:13 PM IRRIGATION WORKER Temperature 36.7 C (98 F) 02/04/2023 2:13 PM IRRIGATION WORKER Respiratory Rate 14 02/03/2023 8:16 AM IRRIGATION WORKER Oxygen Saturation 99% 02/03/2023 8:16 AM IRRIGATION WORKER Inhaled Oxygen Concentration - - Weight 79.4 kg (175 lb) 03/05/2023 2:23 PM IRRIGATION WORKER Height 162.6 cm (5' 4 ) 03/05/2023 2:23 PM IRRIGATION WORKER Body Mass Index 30.04 03/05/2023 2:23 PM IRRIGATION WORKER Plan of Treatment Health Maintenance Due Date Last Done Comments COLOGUARD (AGES 45-75) - COLON CA SCREENING 1972 COLON MONITORING 1972 COLONOSCOPY - COLON CA SCREENING 1972 CT COLONOGRAPHY - COLON CA SCREENING 1972 Colorectal Cancer Screening 1972 FIT - COLON CA SCREENING 1972 FLEX SIG - COLON CA SCREENING 1972 MAMMOGRAM 1972 PAP SMEAR 1972 HIV [...] INFLUENZA VACCINE (#1) 2023 DEPRESSION SCREENING 03/31/2024 LIPID TESTING 09/20/2027 09/19/2022 HIB VACCINE Aged Out No longer eligi ble based on patient's age to complete this topic HPV VACCINE Aged Out No longer eligi ble based on patient's age to complete this topic MENINGOCOCCAL (Group B) VACCINE SHARED DECISION-MAKING Aged Out No longer eligible based on patient's age to complete this topic MENINGOCOCCAL GROUPS A/C/Y/W VACCINE Aged Out No longer eligible based on patient's age to complete this topic PNEUMOCOCCAL VACCINE Aged Out No long er eligible based on patient's age to complete this topic Care Teams Tank Worker Relationship Specialty Start Date End Date Thomas Velez MD [address] [id number] PCP - General Internal Medicine 01/24/23
--- OUTSIDE RECORDS SUMMARY | 2024-06-25 13:01 | XMS_ITS | Clinical Summary ---
Author Organization [facility] Address [address] [place] [address] Care Team Providers Care Clean Up Supervisor Name Role Phone Unavailable Primary Care Provider Unavailabl e Social History Tobacco Use Types Packs/Day Years Used Date Smoking Tobacco: Never Assessed Comments Unknown Sex and Gender Information Value Date Recorded Sex Assigned at Not on file Legal Sex Female 12:26 PM SQUILGEER Gender Identity Not on file Sexual Orientation [...]
--- OUTSIDE RECORDS SUMMARY | 2024-06-25 13:01 | XMS_ITS | Continuity of Care Document ---
Author Organization [facility] Address [address] [place] [address] Phone Care Team Providers Care Disability Case Manager Name Role Phone House Ingris BRITTON Unavailable [...] When P erformed Min 4 Views Office/outpatient visit,[facility] 2023 Advance Directives Directive Yes / No Effective Date File Name No Information Encounters Encounter Description Practice Location Reason(s) For Visit Diagnoses Date Provider Providers Copied on Encounter Office/outpat ient visit[facility], [address], [place], [place], [address], [place] tel:[phone] [facility] right hip pain (chief complaint) Pain in right hipTrochanteric bursitis, right hip 4 Foley Ingris . [address], [address], [place], [place], [address] , [place]. tel:[phone] Family History Family Member Type Diagnosis Age At Onset Mother Problem (finding) Heart Disease Mother Problem (finding) Diabetes Father Problem (finding) Heart Disease Immunizations Vaccine Date Status Comments influenza, injectable, quadrivalent, (3 years or older) administered Source: Source Unspecified Payers Payer name Insurance type Covered alliance party ID Daphney philippe(sAlicia Lo [facility] [id number] Social History Type Description Quantity Date [...]
--- OUTSIDE RECORDS SUMMARY | 2024-06-25 13:01 | XMS_ITS | Clinical Summary ---
Author Organization [facility] [id number] [facility] Address [address] [place] [address] Care Team Providers Care Box Stamper Name Role Phone Christiana Tovar MD Primary Care Provider [phone] Medications azelastine (ASTELIN) 137 mcg/actuation nasal spray Administer 2 Sprays in each nostril 2 times daily. 30 mL Active Active Problems No known active problems Encounters Date Type Department Care Team Description 06/16/2024 External Device Data [facility] ABSTRACTION Provider, Abstract 06/08/2024 External Device Data [facility] ABSTRACTION Provider, Abstract 06/08/2024 External Device Data [facility] ABSTRACTION Provider, Abstract 06/05/2024 External Device Data [facility] ABSTRACTION Provider, Abstract 06/04/2024 External Device Data [facility] ABSTRACTION Provider, Abstract 06/01/2024 External Device Data [facility] ABSTRACTION Provider, Abstract 05/18/2024 External Device Data [facility] ABSTRACTION Provider, Abstract 04/22/2024 External Device Data [facility] ABSTRACTION Provider, Abstract 04/21/2024 External Device Data [facility] ABSTRACTION Provider, Abstract 04/20/2024 External Device Data [facility] ABSTRACTION Provider, Abstract 04/13/2024 External Device Data [facility] ABSTRACTION Provider, Abstract 04/13/2024 External Device Data [facility] ABSTRACTION Provider, Abstract 04/07/2024 12:05 PM MULTIMEDIA AUTHOR Office Visit [facility] [address] [address] Lawanda Howe MD Head congestion (Primary Dx); [...] Comments Blood Pressure 132/88 04/07/2024 12:18 PM MULTIMEDIA AUTHOR Pulse 74 04/07/2024 12:18 PM MULTIMEDIA AUTHOR Temperature 36.7 C (98.1 F) 04/07/2024 12:18 PM MULTIMEDIA AUTHOR Respiratory Rate 16 04/07/2024 12:18 PM MULTIMEDIA AUTHOR Oxygen Saturation 98% 04/07/2024 12:18 PM MULTIMEDIA AUTHOR Inhaled Oxygen Concentration - - Weight 81.2 kg (179 lb) 04/07/2024 12:18 PM MULTIMEDIA AUTHOR Height 162.6 cm (5' 4 ) 04/07/2024 12:18 PM MULTIMEDIA AUTHOR Body Mass Index 30.73 04/07/2024 12:18 PM MULTIMEDIA AUTHOR Plan of Treatment Health Maintenance Due Date Last Done Comments Pre-Diabetes and Diabetes Screening 1972 DTAP/TDAP/TD VACCINES (1 - Tdap) 1991 HEPATITIS B VACCINES (1 of 3 - 19+ 3-dose series) 1991 PAP SMEAR 1993 CERVICAL CANCER SCREENING 2002 HPV/Cotest (30-65) 2002 PAP SMEAR 2002 BREAST CANCER SCREENING 2012 COLORECTAL SCREENING 2017 Colorectal Cancer Screening 2017 FIT-DNA Q 3 years 2017 FIT/FOBT Q 1 year 2017 Flex Sig/CT Colonography Q 5 years 2017 ZOSTER VACCINE (1 of 2) 2022 INFLUENZA VACCINE (#1) 2023 09/19/2023 PNEUMOCOCCAL VACCINE 0-49 YEARS Aged Out No longer eligible based on patient's age to complete this topic Procedures Procedure Name Priority Date/Time Associated Diagnosis Comments POC RAPID STREP A ANTIGEN Routine 04/07/2024 12:34 PM MULTIMEDIA AUTHOR Sore throat POC COVID-19 ANTIGEN Routine 04/07/2024 12:33 PM MULTIMEDIA AUTHOR Head congestion from Last 3 Months Results * POC RAPID STREP A ANTIGEN (04/07/2024 12:34 PM MULTIMEDIA AUTHOR) RAPID STREP POC Negative Negative, Indeterminate [facility] INTERNAL KIT QC POC [place] [facility] KIT LOT NUMBER POC [id number] [facility] KIT EXP DATE POC 03/22/25 [facility] READ METHOD POC Visual [facility] Upper Respiratory SPECIMEN FROM THROAT / Unknown 04/07/2024 12:34 PM MULTIMEDIA AUTHOR Lawanda Howe MD POINT OF CARE TESTING Final R esult [facility] CLIA# [id number] [place] [address] * POC COVID-19 ANTIGEN (04/07/2024 12:33 PM MULTIMEDIA AUTHOR) Pathologist [facility] COVID-19 ANTIGEN POC Presumptively Negative Presumptively Negative [facility] INTERNAL KIT QC POC [place] [facility] KIT LOT NUMBER POC [id number] [facility] KIT EXP DATE POC 05/02/24 [facility] READ METHOD POC Visual [facility] Upper Respiratory 04/07/2024 12:33 PM MULTIMEDIA AUTHOR Lawanda Howe MD POINT OF CARE TESTING Final R esult [facility] CLIA# [id number] [place] [address] from Last 3 Months Insurance [facility] BLUE ACCESS CHOICE [facility] [employer] CHOICE Care Teams Box Stamper Relationship Specialty Start Date End Date Christiana Tovar MD PCP - General Internal Medicine 11/16/19
[2024-06-27 02:34] LABS: FSH 51.3 mIU/mL
== END 2024-06-25 12:53 | disposition home or self-care (01) ==
PROVIDERS: PCP Nurse Practitioner Obstetrics & Gynecology; Visit Provider Nurse Practitioner Obstetrics & Gynecology
DX: N95.1 Menopausal and female climacteric states (principal)
CPT/HCPCS: 36415; 83001

== ENCOUNTER 2024-07-14 12:14 | Outpatient (CLI) | payer BC, SELFPAY ==
--- NOTE | ~2024-07-14 | MM_ITS ---
EXAMINATION: MM screening jenny BI w marilou HISTORY: Screening TECHNIQUE: Craniocaudal and mediolateral oblique 3-D tomosynthesis images were obtained and synthetic 2-D images were generated. CAD analysis was submitted and interpreted. COMPARISON: Comparison to multiple prior studies sequentially, with oldest reviewed study dated 09/19. BREAST PARENCHYMAL COMPOSITION: Dense: The breasts are heterogeneously dense, which may obscure small masses FINDINGS: There is no evidence of suspicious mass, calcification, or architectural distortion to sugg est malignancy in either breast. There has been no suspicious interval change. IMPRESSION: 1. No mammographic evidence of malignancy. 2. Recommend routine screening mammography in one year. BI-RADS Category 1: Negative Reviewed, dictated and finalized at location B.
== END 2024-07-14 12:15 | disposition home or self-care (01) ==
LOC: MICIMG 12:16
PROVIDERS: PCP Nurse Practitioner Obstetrics & Gynecology; Visit Provider Nurse Practitioner Obstetrics & Gynecology
DX: Z12.31 Encounter for screening mammogram for malignant neoplasm of breast (principal); N95.1 Menopausal and female climacteric states
CPT/HCPCS: 77063; 77067